=== PATIENT | female | born 2005 | race Caucasian/White ===

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

== ENCOUNTER 2024-11-09 19:14 | Emergency (ER) | payer BC ==
[2024-11-09 19:29] VITALS: PULSE 75; RESP 16; TEMP 98.2; BMI 18.3
[2024-11-09 20:19] LABS: HEMATOCRIT 39.5 % (34.1-44.9); HEMOGLOBIN 12.8 g/dL (11.2-15.7); MCHC 32.4 g/dl (32.2-35.5); MEAN CELL VOLUME 88.8 fl (79.4-94.8); MEAN PLT VOLUME 12.2 fl (9.4-12.3); PLATELET COUNT 130 x10^3/uL (182-369); RDW 12.6 % (12.0-16.2)
[2024-11-09 20:24] LABS: HCG,QUALITATIVE URINE Negative
[2024-11-09 20:26] LABS: INR 1.23 (0.83-1.09); PROTHROMBIN TIME (PATIENT) 13.5 SEC (9.7-13.0)
[2024-11-09 20:28] LABS: EPI CELLS >36 /uL (0-25.1); HYALINE CASTS 1 /uL (0-3.1); PH,URINE 5.5 (5.0-8.0); URINE APPEARANCE CLEAR; URINE BACTERIA 548 /uL (0-1359); URINE BILIRUBIN NEGATIVE (NEGATIVE); URINE COLOR YELLOW; URINE GLUCOSE (UA) NEGATIVE (NEGATIVE); URINE KETONE TRACE (NEGATIVE); URINE LEUK ESTERASE 1+ (NEGATIVE); URINE NITRITE NEGATIVE (NEGATIVE); URINE PROTEIN NEGATIVE (NEGATIVE); URINE RBC 18 /uL (0-23.9); URINE WBC 95 /uL (0-25.8)
[2024-11-09 21:37] LABS: HCV DIAGNOSTIC IN-HOUSE W/RFLX NON-REACTIVE (NONREACTIVE)
[2024-11-09 21:38] LABS: HIV INTERPRETATION NEGATIVE (NEGATIVE)
[2024-11-09 23:08] VITALS: BP 124/75
== END 2024-11-09 23:07 | disposition home or self-care (01) ==
LOC: JER 19:14
DX: D25.9 Leiomyoma of uterus, unspecified (principal); R10.30 Lower abdominal pain, unspecified; N64.4 Mastodynia; N89.8 Other specified noninflammatory disorders of vagina; N93.9 Abnormal uterine and vaginal bleeding, unspecified; R35.0 Frequency of micturition; R22.2 Localized swelling, mass and lump, trunk; R14.0 Abdominal distension (gaseous)
CPT/HCPCS: 36415; 76830-TC; 81003; 84703; 85027; 85610; 86803; 87081; 87389; 87491; 87591; 87661; 99284-25